=== PATIENT | female | born 1950 | race Caucasian/White ===

== ENCOUNTER 2019-07-02 08:53 | Emergency (ER) | payer MEDICARE ==
[~2019-07-02] VITALS: Ht 152.4 cm; Wt 48.6 kg
[2019-07-02 09:02] VITALS: BP 121/82
== END 2019-07-02 09:27 | disposition home or self-care (01) ==
LOC: ER 08:54
DX: H72.91 Unspecified perforation of tympanic membrane, right ear (principal)
CPT/HCPCS: 99283